=== PATIENT | male | born 1960 | race Caucasian/White ===

== ENCOUNTER 2022-02-28 18:45 | Emergency (ER) | payer SELFPAY ==
[~2022-02-28] VITALS: Ht 175.3 cm; Wt 77.3 kg
[2022-02-28 19:20] VITALS: BP 118/97
== END 2022-02-28 21:43 | disposition left against medical advice (07) ==
LOC: ER 18:46
DX: M79.671 Pain in right foot (principal); Z53.21 Procedure and treatment not carried out due to patient leaving prior to being seen by health care provider; V87.7XXA Person injured in collision between other specified motor vehicles (traffic), initial encounter; Y93.89 Activity, other specified; Y92.488 Other paved roadways as the place of occurrence of the external cause; Y99.8 Other external cause status
CPT/HCPCS: 73110; 73130; 73610; 73630

== ENCOUNTER 2022-03-01 10:16 | Emergency (ER) | payer MEDICAID ==
[~2022-03-01] VITALS: Ht 175.3 cm; Wt 77.3 kg
[2022-03-01 10:58] VITALS: BP 158/90
== END 2022-03-01 13:19 | disposition home or self-care (01) ==
LOC: ER 10:17
DX: S50.11XA Contusion of right forearm, initial encounter (principal); S60.412A Abrasion of right middle finger, initial encounter; S60.414A Abrasion of right ring finger, initial encounter; S60.416A Abrasion of right little finger, initial encounter; S30.810A Abrasion of lower back and pelvis, initial encounter; V98.8XXA Other specified transport accidents, initial encounter; Y93.89 Activity, other specified; Y92.89 Other specified places as the place of occurrence of the external cause; Y99.8 Other external cause status
CPT/HCPCS: 29125; 99283; A6258; A6446; A6449